=== PATIENT | female | born 1995 | race Caucasian/White ===

== ENCOUNTER 2019-04-19 20:15 | Emergency (ER) | payer SELFPAY, OTHER ==
[~2019-04-19] VITALS: Ht 152.4 cm; Wt 54.5 kg
[2019-04-19 22:33] LABS: CK-MB VALUE MASS 1.7 NG/ML (<3.6); CPK CREATINE PHOSPHOKINASE 104 U/L (26-192); MB/CK RELATIVE INDEX 1.63 (< OR =4); TROPONIN I < 0.02 NG/ML (< 0.10)
[2019-04-19 22:47] VITALS: BP 137/79
--- NOTE | 2019-04-20 20:41 | ECGEPIP ---
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
== END 2019-04-19 22:49 | disposition home or self-care (01) ==
LOC: M ED 20:15
DX: R20.2 Paresthesia of skin (principal); R53.1 Weakness; I45.19 Other right bundle-branch block; K90.41 Non-celiac gluten sensitivity